=== PATIENT | female | born 1985 | race African-American/Black ===

== ENCOUNTER 2021-04-16 11:23 | Emergency (ER) | payer MEDICAID, OTHER ==
[~2021-04-16] VITALS: Ht 157.5 cm; Wt 100.4 kg
[2021-04-16 11:26] VITALS: BP 111/68
[2021-04-16 12:30] LABS: BASO # 0.1 x10^3/uL (0.0-0.2); BASO % 1 % (0-3); EOS # 0.2 x10^3/uL (0.0-0.7); EOS % 5 % (0-3); HEMATOCRIT 40.9 % (36.0-47.0); HEMOGLOBIN 13.7 g/dL (12.0-15.5); LYMPH # 1.6 x10^3/uL (1.0-4.8); LYMPH % 34 % (24-48); MEAN CORPUSCULAR HEMOGLOBIN 31 pg (25-35); MEAN CORPUSCULAR HGB CONC 34 g/dL (31-37); MEAN CORPUSCULAR VOLUME 92 fL (79-100); MONO # 0.5 x10^3/uL (0.0-1.1); MONO % 10 % (0-9); NEUT # 2.3 x10^3/uL (1.8-7.7); NEUT % 50 % (31-73); PLATELET COUNT 204 x10^3/uL (140-400); RED BLOOD COUNT 4.47 x10^6/uL (3.50-5.40); RED CELL DISTRIBUTION WIDTH 13.5 % (11.5-14.5); WHITE BLOOD COUNT 4.6 x10^3/uL (4.0-11.0)
[2021-04-16 12:32] LABS: CLARITY,URINE CLOUDY; COLOR,URINE RED; PH,URINE 7.5 (<5.0-8.0)
[2021-04-16 12:43] LABS: BACTERIA,URINE FEW /HPF (0-FEW); RBC,URINE TNTC /HPF (0-2)
[2021-04-16 12:47] LABS: CALCIUM 8.5 mg/dL (8.5-10.1); CREATININE 1.1 mg/dL (0.6-1.0); GFR 69.2; POTASSIUM 3.9 mmol/L (3.5-5.1)
--- NOTE | 2021-04-16 15:22 | PHYS DOC ---
Past Medical History Past Surgical History: , Other Additional Past Surgical Histo: BARIATRIC SURGERY Smoking Status: Never Smoker Alcohol Use: None General Adult EDM: Chief Complaint: VAGINAL BLEEDING HPI: HPI: Patient is a 35 year old female who presents with started having light vaginal spotting that was mostly with wiping yesterday but is not having to wear a pad currently. She states that she feels as though she is just starting her period. She does not know exactly when her last menstrual period is so she is estimating that she is 6 or 7 weeks . She states that in a couple weeks she has her first ultrasound scheduled here at our [facility]. She states she has not actually seen an OB doctor yet. Patient has 2 living children and had a miscarriage in 2020. She has a history of and bariatric surgery. Denies any pain at this time. Patient denies urinary symptoms, back pain, abdominal pain, nausea, vomiting, diarrhea, fever, headache, dizziness, weakness. Review of Systems: Review of Systems: Constitutional: Denies fever or chills. [] Eyes: Denies change in visual acuity. [] HENT: Denies nasal congestion or sore throat. [] Respiratory: Denies cough or shortness of breath. [] Cardiovascular: Denies chest pain or edema. [] GI: Denies abdominal pain, nausea, vomiting, bloody stools or diarrhea. [] : Denies dysuria. [] Musculoskeletal: Denies back pain or joint pain. [] Integument: Denies rash. [] Neurologic: Denies headache, focal weakness or sensory changes. [] Endocrine: Denies polyuria or polydipsia. [] Lymphatic: Denies swollen glands. [] Psychiatric: Denies depression or anxiety. [] Heart Score: C/O Chest Pain: No Allergies: Allergies: Allergies Coded Allergies Type Severity Reaction Last Updated Verified No Known Drug Allergies 04/16/21 No Physical Exam: PE: Constitutional: Well developed, well nourished, no acute distress, non-toxic appearance. [] HENT: Normocephalic, atraumatic, bilateral external ears normal, oropharynx moist, no oral exudates, nose normal. [] Eyes: PERRLA, EOMI, conjunctiva normal, no discharge. [] Neck: Normal range of motion, no tenderness, supple, no stridor. [] Cardiovascular:Heart rate regular rhythm, no murmur [] Lungs & Thorax: Bilateral breath sounds clear to auscultation [] Abdomen: Bowel sounds normal, soft, no tenderness, no masses, no pulsatile masses. [] Skin: Warm, dry, no erythema, no rash. [] Back: No tenderness, no CVA tenderness. [] Extremities: No tenderness, no cyanosis, no clubbing, ROM intact, no edema. [] Neurologic: Alert and oriented X 3, normal motor function, normal sensory function, no focal deficits noted. [] Psychologic: Affect normal, judgement normal, mood normal. [] Current Patient Data: Labs: Laboratory Tests Test 04/16/21 11:54 White Blood Count 4.6 x10^3/uL (4.0-11.0) Red Blood Count 4.47 x10^6/uL (3.50-5.40) Hemoglobin 13.7 g/dL (12.0-15.5) Hematocrit 40.9 % (36.0-47.0) Mean Corpuscular Volume 92 fL (79-100) Mean Corpuscular Hemoglobin 31 pg (25-35) Mean Corpuscular Hemoglobin Concent 34 g/dL (31-37) Red Cell Distribution Width 13.5 % (11.5-14.5) Platelet Count 204 x10^3/uL (140-400) Neutrophils (%) (Auto) 50 % (31-73) Lymphocytes (%) (Auto) 34 % (24-48) Monocytes (%) (Auto) 10 % (0-9) H Eosinophils (%) (Auto) 5 % (0-3) H Basophils (%) (Auto) 1 % (0-3) Neutrophils # (Auto) 2.3 x10^3/uL (1.8-7.7) Lymphocytes # (Auto) 1.6 x10^3/uL (1.0-4.8) Monocytes # (Auto) 0.5 x10^3/uL (0.0-1.1) Eosinophils # (Auto) 0.2 x10^3/uL (0.0-0.7) Basophils # (Auto) 0.1 x10^3/uL (0.0-0.2) Urine Collection Type Unknown Urine Color Red Urine Clarity Cloudy Urine pH 7.5 (<5.0-8.0) Urine Specific [place] 1.020 (1.000-1.030) Urine Protein mg/dL (NEG-TRACE) Urine Glucose (UA) mg/dL (NEG) Urine Ketones (Stick) mg/dL (NEG) Urine Blood (NEG) Urine Nitrite (NEG) Urine Bilirubin (NEG) Urine Urobilinogen Dipstick mg/dL (0.2 mg/dL) Urine Leukocyte Esterase (NEG) Urine RBC Tntc /HPF (0-2) Urine WBC 1-4 /HPF (0-4) Urine Squamous Epithelial Cells Few /LPF Urine Bacteria Few /HPF (0-FEW) Maternal Serum HCG Beta Subunit 1707 mIU/mL (0-5) H Sodium Level 138 mmol/L (136-145) Potassium Level 3.9 mmol/L (3.5-5.1) Chloride Level 106 mmol/L (98-107) Carbon Dioxide Level 23 mmol/L (21-32) Anion Gap 9 (6-14) Blood Urea Nitrogen 16 mg/dL (7-20) Creatinine 1.1 mg/dL (0.6-1.0) H Estimated GFR (Cockcroft-Gault) 69.2 Glucose Level 91 mg/dL (70-99) Calcium Level 8.5 mg/dL (8.5-10.1) Laboratory Tests 04/16/21 11:54 Laboratory Tests 04/16/21 11:54 Vital Signs: Vital Signs Date Time Temp Pulse Resp B/P (MAP) Pulse Ox O2 Delivery O2 Flow Rate FiO2 04/16/21 11:26 98.4 94 18 111/68 (82) 98 Room Air 98.4 EKG: EKG: [] Radiology/Procedures: Radiology/Procedures: [] Impression: [facility] [address] [place], [place] [id number] IMAGING REPORT Signed PATIENT: BRAYAN CORRALES ACCOUNT: [id number] : 1985 LOCATION: ER AGE: 35 SEX: F EXAM STATUS: REG ER ORD. PHYSICIAN: EMMANUEL FLORES APRN REASON: vaginal bleeding in ; BETA HCG 1707 PROCEDURE: OB <14 WKS W/TV EXAM: Obstetrics sonogram. HISTORY: Vaginal bleeding. TECHNIQUE: Sonographic imaging of the pelvis was performed. COMPARISON: None. FINDINGS: The uterus measures 10.7 x 5.4 x 5.2 cm. The cervix measures 5.4 cm in length. There is no intrauterine gestational sac. There is a thickened endometrial stripe measuring 2.1 cm. The ovaries are normal in size and demonstrate normal blood flow. There is a simple appearing left ovarian cyst measuring 5.8 cm. There is a small amount of simple pelvic free fluid. IMPRESSION: 1. No intrauterine gestational sac. This may be due to an early viable , chemical , early miscarriage. Correlation with serial beta- hCG levels is recommended to exclude ectopic gestation. 2. 5.8 cm simple appearing left ovarian cyst and small amount of pelvic free fluid. Electronically signed by: Camilla Nieves MD (04/16/2021 3:33 PM) [id number] DICTATED and SIGNED BY: CAMILLA NIEVES MD DATE: 04/16/21 [id number] 0 Course & Med Decision Making: Course & Med Decision Making Pertinent Labs and Imaging studies reviewed. (See chart for details) See HPI. Alert and oriented x4. Ambulatory with steady gait. Speaks in full clear sentences. Skin pink warm and dry. Abdomen soft and nontender. Urine is to bloody to see if she has infection. I spoke to Dr. Atkins with [employer] and I went over beta serum and ultrasound findings. I told him that I cannot rule out an ectopic . Dr. Atkins states that the patient can just come into the office on morning for a follow-up beta serum and appointment. Patient is not in any pain or discomfort. Her bleeding at this time is minimal. Patient is B+. Prep shows bacterial vaginosis. Pelvic Exam: Computer Systems Software Engineer present Abdomen: Nontender External Genitalia: Normal Skin Speculum: Normal vaginal mucosa, bloody cervical discharge, cervical os closed Bimanual: No adnexal masses or tenderness, No CMT [] Dragon Disclaimer: Dragon Disclaimer: This electronic medical record was generated, in whole or in part, using a voice recognition dictation system. Departure Departure Impression: Primary Impression: Vaginal bleeding during Additional Impressions: Threatened miscarriage Bacterial vaginosis in Disposition: 01 HOME / SELF CARE / HOMELESS Condition: STABLE Referrals: NO PCP (PCP) LEDA ATKINS MD Patient Instructions: Threatened Miscarriage, Vaginal Bleeding During , First Trimester Additional Instructions: Call Dr. Atkins office and let them know they are you were here today and that Dr. Atkins is waiting to see you morning. If you begin having severe abdominal pain, going through more than 1 pad an hour return to the emergency room. Take Tylenol if you have any pain. Scripts Metronidazole (METRONIDAZOLE) 500 Mg Tablet 1 TAB PO BID for 7 Days, #14 TAB 0 Refills Prov: EMMANUEL FLORES APRN 04/16/21 EMMANUEL FLORES APRN Apr 16, 2021 15:22
--- NOTE | 2021-04-16 15:35 | RAD ---
EXAM: Obstetrics sonogram. HISTORY: Vaginal bleeding. TECHNIQUE: Sonographic imaging of the pelvis was performed. COMPARISON: None. FINDINGS: The uterus measures 10.7 x 5.4 x 5.2 cm. The cervix measures 5.4 cm in length. There is no intrauterine gestational sac. There is a thickened endometrial stripe measuring 2.1 cm. The ovaries a re normal in size and demonstrate normal blood flow. There is a simple appearing left ovarian cyst me asuring 5.8 cm. There is a small amount of simple pelvic free fluid. IMPRESSION: 1. No intrauterine gestational sac. This may be due to an early viable , chemical , early miscarriage. Correlation with serial beta-hCG levels is recommended to exclude ectopic gestati on. 2. 5.8 cm simple appearing left ovarian cyst and small amount of pelvic free fluid. Electronically signed by: Camilla Hylton MD (04/16/2021 3:33 PM) [id number]
[2021-04-16] MEDS ORDERED: METR-34 PO (15:59)
[2021-04-17 21:08] LABS: GC PROBE Negative (Negative)
== END 2021-04-16 16:25 | disposition home or self-care (01) ==
LOC: ER 11:23
DX: O20.0 Threatened abortion (principal); O23.591 Infection of other part of genital tract in pregnancy, first trimester; B96.89 Other specified bacterial agents as the cause of diseases classified elsewhere; Z3A.01 Less than 8 weeks gestation of pregnancy; Z98.84 Bariatric surgery status
CPT/HCPCS: 36415; 76801; 76817; 80048; 81001; 84702; 85025; 86850; 86900; 86901; 87491; 87591; 99284; Q0111